=== PATIENT | female | born 1945 | race Caucasian/White ===

== ENCOUNTER 2021-09-22 19:10 | Emergency (ER) | payer MEDICARE, OTHER ==
[~2021-09-22 19:10] MED LIST: ACIDOPHILUS100 MG PO; ADV50250 IH; ALBU18HF2 IH; AMIT75TA PO; ATOR10TA70 PO; CETI-1 PO; ENOX40SY7 SQ; GEMF600T89 PO; HYDR-3972 PO; PRIM50TA5 PO; VERA240T92 PO
== END 2021-09-22 20:08 | disposition left against medical advice (07) ==
LOC: ER 19:11
DX: J45.909 Unspecified asthma, uncomplicated (principal); Z53.21 Procedure and treatment not carried out due to patient leaving prior to being seen by health care provider